=== PATIENT | male | born 1965 | race American Indian/Alaskan Native ===

== ENCOUNTER 2022-04-20 09:18 | Day surgery (SDC) | payer OTHER ==
[2022-04-20] MEDS ORDERED: LACTATED RINGERS 1,000 ML IV SCH (10:00)
--- NOTE | 2022-04-20 10:45 | Anesthesia Day of Surgery ---
Anesthesia Day of Surgery - Day of Surgery Patient Examined: Yes Patient H&P Reviewed: Yes Patient is NPO: Yes
--- NOTE | 2022-04-20 10:46 | Anesthesia Consultation ---
Anesthesia Consult and Med Hx Date of service: 04/20/22 - Airway Anesthetic Teeth Evaluation: Caps ROM Head & Neck: Adequate Mental/Hyoid Distance: Adequate Mallampati Class: Class II Intubation Access Assessment: Good - Pre-Operative Health Status ASA Pre-Surgery Classification: ASA2 Proposed Anesthetic Plan: General - Pulmonary Hx Smoking: No Hx Sleep Apnea: No ([place] PRE SCREEN HIGH RISK) - Cardiovascular System Hx Hypertension: Yes (2012) - Central Nervous System CVA: Yes (Had TIA 2012-reports negative w/u and no problems since) Hx Back Pain: Yes Hx Psychiatric Problems: No - Gastrointestinal Hx Gastroesophageal Reflux Disease: No - Hematic Hx Anemia: No Hx Sickle Cell Disease: No - Other Systems Hx Cancer: No Hx Obesity: Yes
[2022-04-20] MEDS ORDERED: CELECOXIB 200 MG CAP ONE (10:51)
[2022-04-20] MEDS ORDERED: ONDANSETRON 4 MG/2 ML INJ IV PRN (11:00)
[2022-04-20] MEDS ORDERED: MAGNESIUM OXIDE 400 MG TAB PO SCH (11:00)
[2022-04-20] MEDS ORDERED: CELECOXIB 200 MG CAP PO NR (11:00)
[2022-04-20] MEDS ORDERED: ACETAMINOPHEN 500 MG TAB PO SCH (11:00)
[2022-04-20] MEDS ORDERED: HYDROmorphone 0.5 MG/0.5 ML INJ IV PRN ×2 (11:00)
[2022-04-20] MEDS ORDERED: propofoL 200 MG/20 ML VIAL IV ONE ×2 (11:49→12:12)
[2022-04-20] MEDS ORDERED: LIDOCAINE MPF (2%) 20 MG/1 ML VIAL 5 ML ONE (11:49)
[2022-04-20] MEDS ORDERED: ceFAZolin/STERILE WATER 2 GM/20 ML SYRINGE IV NR (12:00)
[2022-04-20] MEDS ORDERED: HYDROmorphone 1 MG/1 ML INJ ONE (12:22)
[2022-04-20] MEDS ORDERED: KETOROLAC 30 MG/1 ML INJ ONE (12:22)
[2022-04-20] MEDS ORDERED: dexAMETHasone 20 MG/5 ML VIAL ONE (12:22)
[2022-04-20] MEDS ORDERED: ONDANSETRON 4 MG/2 ML INJ ONE (12:22)
[2022-04-20] MEDS ORDERED: ePHEDrine SULFATE 50 MG/1 ML INJ ONE ×2 (12:27→12:55)
[2022-04-20] MEDS ORDERED: BUPIVACAINE/PF (0.25%) 2.5 MG/ML 30 ML VIAL INFILTRATI ONE (13:08)
[2022-04-20] MEDS ORDERED: LACTATED RINGERS 1,000 ML ONE (13:12)
--- NOTE | 2022-04-20 13:26 | Discharge Summary ---
Short Stay Discharge Plan Weight Bearing Status: Weight Bear as Tolerated Diet: regular Wound: change dressing (In 48 hours) Durable Medical Equipment Needed Upon Discharge: Crutches Follow up with: MADELYN HARVEY MD [Primary Care Provider] - 7 Days MICHELLE ASHLEY II, MD [Staff Physician] - 14 Days
[2022-04-20] MEDS ORDERED: SODIUM CHLORIDE 0.9% IRRIG SOLN 3000 ML IR ONE (13:35)
[2022-04-20] MEDS ORDERED: EPINEPHrine/PF 1 MG/1 ML INJ IV ONE (13:35)
--- NOTE | 2022-04-20 14:05 | Operative Report ---
DATE OF SURGERY: 04/20/2022 PREOPERATIVE DIAGNOSES: Right hip trochanteric bursitis. POSTOPERATIVE DIAGNOSES: Right hip trochanteric bursitis. PROCEDURE PERFORMED: Right hip trochanteric bursectomy and IT band release. SURGEON: Rashaad Das II, MD TRAY SETTER: None. ANESTHESIA: General. COMPLICATIONS: None. DRAINS: None. SPECIMENS: None. TOURNIQUET TIME: Not applicable. INTRAOPERATIVE MEDS: 0.25% Marcaine plain, 20 mL. INDICATIONS: The patient is a 56-year-old male with refractory pain in his right hip. On evaluation workup, he does have trochanteric bursitis. Recommended the patient to undergo surgical management. Risks, benefits and limitations of surgery were discussed with the patient including bleeding, infection, injury to nerves, blood vessel, need for reoperation. The patient appeared to understand the risks and consented to undergo surgery. TECHNIQUE: In the preoperative holding area, site was marked with surgical marking pen. The extremity was prepped and draped in sterile fashion. In a lateral decubitus position, all bony prominences were well padded. Standard proximal and distal incision were made just proximal and distal to the greater trochanter. Subcutaneous tissue was injected with 0.25% Marcaine. A shaver was used to debride the underlying soft tissue. The IT band was identified and then incised using an arthroscopic wand. The underlying trochanteric bursa was visualized and debrided. The hip was internally and externally rotated maximally in order to obtain maximal debridement. There was noted to be significant synovitis in the area of the trochanteric bursa. The Arthrocare wand was used to ablate the edges of the open IT band split. The arthroscope was then removed. Incisions were closed with 3-0 nylon. Portals were injected with 0.25% Marcaine. Sterile dressing was applied. The patient was awakened and taken to recovery room in stable condition. POSTOPERATIVE PLAN: The patient will be weightbear as tolerated, do physical therapy, work on range of motion exercises. I will see the patient back for followup visit in 2 weeks postop. TID: [id number] RECEIPT: [id number] [facility]
--- NOTE | 2022-04-20 17:14 | Post Anesthesia Evaluation ---
- Post Anesthesia Evaluation Patient Participated: Yes Airway Patent: Yes Stable Respiratory Function: Yes Nausea/Vomiting: No Temp > 96.8F: Yes Pain Manageable: Yes Adequeate Hydration: Yes Anesthesia Complications: No Block Receding Appropriately: Not Applicable Patient on Ventilator: No
[2022-04-20 19:38] VITALS: BP 126/72
== END 2022-04-20 15:36 | disposition home or self-care (01) ==
LOC: OR 09:18
PROVIDERS: ATTEND Orthopaedic Surgery Sports Medicine
DX: M70.61 Trochanteric bursitis, right hip (principal); E78.00 Pure hypercholesterolemia, unspecified; I10 Essential (primary) hypertension; E66.9 Obesity, unspecified; Z98.890 Other specified postprocedural states; Z91.010 Allergy to peanuts; Z88.8 Allergy status to other drugs, medicaments and biological substances; Z79.899 Other long term (current) drug therapy; Z86.73 Personal history of transient ischemic attack (TIA), and cerebral infarction without residual deficits; Z86.2 Personal history of diseases of the blood and blood-forming organs and certain disorders involving the immune mechanism
CPT/HCPCS: 29999; 36415; 84132; J0171; J0690; J1100; J1170; J1885; J2405; J2704; J3490; J7120